=== PATIENT | male | born 1970 | race Caucasian/White ===

== ENCOUNTER 2019-01-08 23:15 | Emergency (ER) | payer BC, OTHER ==
[2019-01-08] MEDS ORDERED: Proparacaine 0.5% Ophth Soln 15 ML Bottle EYELF ONE (23:25)
[2019-01-08] MEDS ORDERED: Fluorescein 1 MG Ophth Strip EYERT ONE (23:25)
[2019-01-08] MEDS ORDERED: Take Home: Gentamicin 0.3% Ophth Soln 5 ML, 1 Bottle Pack EYEBOTH ONE (23:34)
[2019-01-08] MEDS ORDERED: Take Home: Diclofenac Sodium 0.1% Ophth Soln 5 ML, 1 Bottle Pack EYEBOTH ONE (23:34)
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
== END 2019-01-09 00:02 | disposition home or self-care (01) ==
LOC: VM.ED 23:15
DX: S05.01XA Injury of conjunctiva and corneal abrasion without foreign body, right eye, initial encounter (principal); X58.XXXA Exposure to other specified factors, initial encounter
CPT/HCPCS: 99283; A9270